=== PATIENT | female | born 1970 | race Two or more races ===

== ENCOUNTER 2021-07-06 11:41 | Inpatient (IN) | payer OTHER ==
[~2021-07-06] VITALS: Ht 172.7 cm; Wt 74.6 kg
[2021-07-06] MEDS ORDERED: ACETAMINOPHEN 325 MG TAB PO ONE (12:00)
[2021-07-06 12:15] LABS: Basophils # (auto) 0 10 ^3/uL (0-0.2); Basophils % (auto) 0.3 % (0.0-2.0); Eosinophils # (auto) 0 10 ^3/uL (0-0.8); Eosinophils % (auto) 0.2 % (0.0-7.0); Hematocrit 32.5 % (36.0-46.0); Hemoglobin 10.9 g/dL (12.2-16.2); Lymphocytes # (auto) 0.6 10 ^3/uL (0.4-5.4); Lymphocytes % (auto) 8.9 % (10.0-50.0); Mean Corpuscular Hemoglobin 30.1 pg (28.0-32.0); Mean Corpuscular Hgb Conc. 33.7 g/dL (32.0-36.0); Mean Corpuscular Volume 89.4 fL (80.0-100.0); Monocytes # (auto) 0.7 10 ^3/uL (0-1.3); Neutrophils # (auto) 5.4 10 ^3/uL (1.6-8.6); Neutrophils % (auto) 79.6 % (37.0-80.0); Red Blood Cells 3.63 10^6/uL (4.0-5.20); Red Cell Distribution Width 12.9 % (11.8-14.3); White Blood Cell 6.8 10^3/uL (4.4-10.8)
[2021-07-06] MEDS ORDERED: DexAMETHasone SOD PHOS 10MG/1ML VIAL INJ IV ONE (12:15)
[2021-07-06 12:33] LABS: Albumin 2.7 g/dL (3.4-5.0); Anion Gap 10 (5-15); Blood Urea Nitrogen 14 mg/dL (7-18); Calcium 9.1 mg/dL (8.5-10.1); Carbon Dioxide 23 mmol/L (21-32); Chloride 103 mmol/L (98-107); Glucose 183 mg/dL (74-106); Lipase 222 U/L (73-393); Potassium 3.8 mmol/L (3.5-5.1); Sodium 136 mmol/L (136-145)
[2021-07-06 12:36] LABS: INR 1.09 (0.9-1.15); Partial Thromboplastin Time 27.8 sec (23.6-33.0)
[2021-07-06 12:38] LABS: Alanine Aminotransferase 42 U/L (13-56); Alkaline Phosphatase 70 U/L (45-117); Aspartate Aminotransferase 46 U/L (15-37); BUN/Creatinine Ratio 13.9; Bilirubin, Total 1.1 mg/dL (0.2-1.0); GFR African American 74 mL/min; GFR Non-African American 61 mL/min; Total Protein 8.5 g/dL (6.4-8.2)
[2021-07-06 14:57] LABS: Urine Bacteria NONE SEEN /hpf (None Seen); Urine Blood TRACE /uL (Negative); Urine Mucus FEW (None Seen); Urine Specific Gravity 1.026 (1.001-1.035); Urine WBC 498 /hpf (0 - 5)
[2021-07-06] MEDS ORDERED: ACETAMINOPHEN 500 MG TAB PO PRN (16:30)
[2021-07-06] MEDS ORDERED: DEXTROSE (50%) 50ML SYRG IV PRN (16:30)
[2021-07-06] MEDS ORDERED: MORPHINE SULFATE INJECTION 2 MG/ML SYRG IV PRN (16:30)
[2021-07-06] MEDS ORDERED: NITROGLYCERIN 0.4 MG SL TAB SL PRN (16:30)
[2021-07-06] MEDS ORDERED: REMDESIVIR PER PHARMACY 0 ML IV SCH (16:30)
[2021-07-06] MEDS: cefTRIAXone 1GM/50ML D5W 50 ML IV SCH (16:55)
[2021-07-06] MEDS: AZITHROMYCIN 500MG/ 250ML 250 ML IV SCH (17:45)
[2021-07-06] MEDS: InsuLIN REG 1unit/0.01ml Soln (100units/ml) SC SCH ×2 (17:53→22:16)
[2021-07-06] MEDS: ACCU-CHEK COMFORT CURVE STRIP VI SCH ×2 (17:55→22:11)
[2021-07-06] MEDS ORDERED: REMDESIVIR 200 MG in NS 210ml LOADING DOSE ADULT IV ONE (20:00)
[2021-07-06] MEDS: ENOXAPARIN SOD 40 MG/0.4 ML SYRINGE SC SCH (22:16)
[2021-07-07] MEDS: ACCU-CHEK COMFORT CURVE STRIP VI SCH ×4 (06:34→21:41)
[2021-07-07 06:42] LABS: Albumin 2.2 g/dL (3.4-5.0); BUN/Creatinine Ratio 24.7; Calcium 9.1 mg/dL (8.5-10.1); Potassium 3.9 mmol/L (3.5-5.1)
[2021-07-07 06:44] LABS: Bilirubin, Total 0.6 mg/dL (0.2-1.0); Total Protein 7.5 g/dL (6.4-8.2)
[2021-07-07 06:45] LABS: Basophils # (auto) 0 10 ^3/uL (0-0.2); Basophils % (auto) 0.1 % (0.0-2.0); Eosinophils # (auto) 0 10 ^3/uL (0-0.8); Hematocrit 35.9 % (36.0-46.0); Hemoglobin 12.3 g/dL (12.2-16.2); Lymphocytes # (auto) 0.5 10 ^3/uL (0.4-5.4); Lymphocytes % (auto) 6.7 % (10.0-50.0); Mean Corpuscular Hemoglobin 30.5 pg (28.0-32.0); Mean Corpuscular Hgb Conc. 34.3 g/dL (32.0-36.0); Mean Corpuscular Volume 89.2 fL (80.0-100.0); Monocytes # (auto) 0.8 10 ^3/uL (0-1.3); Monocytes % (auto) 9.7 % (0.0-12.0); Neutrophils # (auto) 6.6 10 ^3/uL (1.6-8.6); Neutrophils % (auto) 83.5 % (37.0-80.0); Red Blood Cells 4.03 10^6/uL (4.0-5.20); Red Cell Distribution Width 12.8 % (11.8-14.3); White Blood Cell 7.8 10^3/uL (4.4-10.8)
[2021-07-07] MEDS: InsuLIN REG 1unit/0.01ml Soln (100units/ml) SC SCH ×5 (06:45→21:43)
[2021-07-07] MEDS: BUDESONIDE (INHALATION) 180 MCG IH IN SCH ×3 (08:15→20:19)
[2021-07-07] MEDS: cefTRIAXone 1GM/50ML D5W 50 ML IV SCH (08:46)
[2021-07-07 09:06] VITALS: BP 126/68
[2021-07-07] MEDS: ENOXAPARIN SOD 40 MG/0.4 ML SYRINGE SC SCH (09:49)
[2021-07-07] MEDS: DexAMETHasone SOD PHOS 10MG/1ML VIAL INJ IV SCH (09:49)
[2021-07-07] MEDS: CHOLECALCIFEROL (VITD3) 2,000 UNIT CAP/TAB PO SCH (09:50)
[2021-07-07] MEDS: ZINC SULFATE 220mg CAP or TAB PO SCH (09:50)
[2021-07-07] MEDS: ASCORBIC ACID 1,000 MG TAB PO SCH (09:50)
[2021-07-07] MEDS: AZITHROMYCIN 500MG/ 250ML 250 ML IV SCH (09:59)
[2021-07-07] MEDS: ALBUTEROL SULF HFA 90MCG INH 200DOSE IN PRN ×2 (12:25→20:19)
[2021-07-07] MEDS ORDERED: IOHEXOL 350 MG/ML 100ML IJ ONE (13:18)
[2021-07-07] MEDS: REMDESIVIR 100mg 100 MG in SODIUM CHL 0.9% 230 ML IV SCH (15:25)
[2021-07-07] MEDS ORDERED: ENOXAPARIN SOD 80 MG/0.8ML SYRINGE SC ONE (15:30)
[2021-07-07] MEDS ORDERED: ENOXAPARIN SOD 30 MG/0.3 ML SYRINGE SC ONE (16:00)
[2021-07-07 17:43] VITALS: BP 156/88
[2021-07-07] MEDS ORDERED: ATOR10TA52 PO (18:19)
[2021-07-07] MEDS ORDERED: LISI20TA28 PO (18:19)
[2021-07-07] MEDS ORDERED: METF750T54 PO (18:19)
[2021-07-07] MEDS: ENOXAPARIN SOD 80 MG/0.8ML SYRINGE SC SCH (21:41)
[2021-07-07 22:40] VITALS: BP 134/73
[2021-07-08 05:10] VITALS: BP 146/77
[2021-07-08] MEDS: InsuLIN REG 1unit/0.01ml Soln (100units/ml) SC SCH ×4 (06:37→22:00)
[2021-07-08] MEDS: ACCU-CHEK COMFORT CURVE STRIP VI SCH ×4 (06:37→22:00)
[2021-07-08 06:40] LABS: Basophils # (auto) 0 10 ^3/uL (0-0.2); Basophils % (auto) 0.1 % (0.0-2.0); Eosinophils # (auto) 0 10 ^3/uL (0-0.8); Hematocrit 37.7 % (36.0-46.0); Hemoglobin 12.5 g/dL (12.2-16.2); Lymphocytes # (auto) 0.6 10 ^3/uL (0.4-5.4); Lymphocytes % (auto) 4.7 % (10.0-50.0); Mean Corpuscular Hemoglobin 29.5 pg (28.0-32.0); Mean Corpuscular Hgb Conc. 33.1 g/dL (32.0-36.0); Mean Corpuscular Volume 89.3 fL (80.0-100.0); Monocytes # (auto) 0.9 10 ^3/uL (0-1.3); Monocytes % (auto) 7.1 % (0.0-12.0); Neutrophils # (auto) 11.2 10 ^3/uL (1.6-8.6); Neutrophils % (auto) 88.1 % (37.0-80.0); Red Blood Cells 4.23 10^6/uL (4.0-5.20); Red Cell Distribution Width 12.6 % (11.8-14.3); White Blood Cell 12.7 10^3/uL (4.4-10.8)
[2021-07-08 07:00] LABS: Potassium 4.1 mmol/L (3.5-5.1)
[2021-07-08] MEDS ORDERED: INSULIN LANTUS (GLARGINE) 1 /0.01ml (100units/ml) SC SCH (07:00)
[2021-07-08 07:07] LABS: Albumin 2.4 g/dL (3.4-5.0); Bilirubin, Total 0.5 mg/dL (0.2-1.0); Calcium 9.7 mg/dL (8.5-10.1); Total Protein 7.8 g/dL (6.4-8.2)
[2021-07-08] MEDS: DexAMETHasone SOD PHOS 10MG/1ML VIAL INJ IV SCH (08:56)
[2021-07-08] MEDS: cefTRIAXone 1GM/50ML D5W 50 ML IV SCH (08:56)
[2021-07-08] MEDS: ZINC SULFATE 220mg CAP or TAB PO SCH (08:56)
[2021-07-08] MEDS: ASCORBIC ACID 1,000 MG TAB PO SCH (08:57)
[2021-07-08] MEDS: CHOLECALCIFEROL (VITD3) 2,000 UNIT CAP/TAB PO SCH (08:57)
[2021-07-08] MEDS: ENOXAPARIN SOD 80 MG/0.8ML SYRINGE SC SCH ×2 (08:57→22:08)
[2021-07-08 09:00] VITALS: BP 139/78
[2021-07-08] MEDS: AZITHROMYCIN 500MG/ 250ML 250 ML IV SCH (09:23)
[2021-07-08] MEDS: BUDESONIDE (INHALATION) 180 MCG IH IN SCH ×2 (10:33→22:00)
[2021-07-08] MEDS: ALBUTEROL SULF HFA 90MCG INH 200DOSE IN PRN ×2 (10:33→22:39)
[2021-07-08 13:00] VITALS: BP 143/81
[2021-07-08] MEDS: INSULIN LANTUS (GLARGINE) 1 /0.01ml (100units/ml) SC SCH ×2 (13:38→22:00)
[2021-07-08] MEDS: REMDESIVIR 100mg 100 MG in SODIUM CHL 0.9% 230 ML IV SCH (15:10)
[2021-07-08 17:00] VITALS: BP 167/83
[2021-07-08 18:13] VITALS: BP 156/82
[2021-07-08 23:01] VITALS: BP 139/74
[2021-07-09 00:50] VITALS: BP 139/74
[2021-07-09 05:16] VITALS: BP 150/76
[2021-07-09] MEDS: InsuLIN REG 1unit/0.01ml Soln (100units/ml) SC SCH ×4 (06:39→21:53)
[2021-07-09] MEDS: ACCU-CHEK COMFORT CURVE STRIP VI SCH ×4 (06:40→21:41)
[2021-07-09] MEDS: BUDESONIDE (INHALATION) 180 MCG IH IN SCH ×2 (06:56→20:57)
[2021-07-09] MEDS: ALBUTEROL SULF HFA 90MCG INH 200DOSE IN PRN (06:56)
[2021-07-09 07:02] LABS: Basophils # (auto) 0 10 ^3/uL (0-0.2); Basophils % (auto) 0.4 % (0.0-2.0); Eosinophils # (auto) 0 10 ^3/uL (0-0.8); Eosinophils % (auto) 0.2 % (0.0-7.0); Lymphocytes # (auto) 0.9 10 ^3/uL (0.4-5.4); Nucleated Red Blood Cells % 0.1 %
[2021-07-09 07:06] LABS: Hematocrit 37.4 % (36.0-46.0); Hemoglobin 12.4 g/dL (12.2-16.2); Lymphocytes % (auto) 8.5 % (10.0-50.0); Mean Corpuscular Hemoglobin 29.7 pg (28.0-32.0); Mean Corpuscular Volume 89.8 fL (80.0-100.0); Monocytes % (auto) 8.7 % (0.0-12.0); Neutrophils # (auto) 9.1 10 ^3/uL (1.6-8.6); Neutrophils % (auto) 82.2 % (37.0-80.0); Red Blood Cells 4.17 10^6/uL (4.0-5.20); Red Cell Distribution Width 12.5 % (11.8-14.3)
[2021-07-09 07:34] LABS: Potassium 4.1 mmol/L (3.5-5.1)
[2021-07-09 07:44] LABS: Albumin 2.3 g/dL (3.4-5.0); BUN/Creatinine Ratio 26.5; Calcium 9.7 mg/dL (8.5-10.1)
[2021-07-09 07:53] LABS: Bilirubin, Total 0.4 mg/dL (0.2-1.0); Total Protein 7.5 g/dL (6.4-8.2)
[2021-07-09 09:00] VITALS: BP 155/80
[2021-07-09] MEDS: AZITHROMYCIN 500MG/ 250ML 250 ML IV SCH (09:50)
[2021-07-09] MEDS: cefTRIAXone 1GM/50ML D5W 50 ML IV SCH (09:50)
[2021-07-09] MEDS: DexAMETHasone SOD PHOS 10MG/1ML VIAL INJ IV SCH (09:51)
[2021-07-09] MEDS: CHOLECALCIFEROL (VITD3) 2,000 UNIT CAP/TAB PO SCH (09:51)
[2021-07-09] MEDS: ENOXAPARIN SOD 80 MG/0.8ML SYRINGE SC SCH ×2 (09:51→21:41)
[2021-07-09] MEDS: ZINC SULFATE 220mg CAP or TAB PO SCH (09:51)
[2021-07-09] MEDS: ASCORBIC ACID 1,000 MG TAB PO SCH (09:51)
[2021-07-09] MEDS: INSULIN LANTUS (GLARGINE) 1 /0.01ml (100units/ml) SC SCH ×2 (09:52→21:46)
[2021-07-09 13:00] VITALS: BP 142/85
[2021-07-09] MEDS: REMDESIVIR 100mg 100 MG in SODIUM CHL 0.9% 230 ML IV SCH (15:43)
[2021-07-09 17:00] VITALS: BP 157/88
[2021-07-09 21:51] VITALS: BP 168/80
[2021-07-09] MEDS ORDERED: amLODIPine BESYLATE 5 MG TAB PO ONE (22:15)
[2021-07-09] MEDS ORDERED: ACETAMINOPHEN 325 MG TAB PO PRN (22:15)
[2021-07-09] MEDS ORDERED: hydrALAZINE HCL 20 MG/ML VL IV PRN (22:15)
[2021-07-10] VITALS (7 sets, daily range): BP systolic 112–176; BP diastolic 76–97
[2021-07-10] MEDS ORDERED: HYDROcodone-ACET 5/325MG TAB PO PRN (00:15)
[2021-07-10] MEDS: ACCU-CHEK COMFORT CURVE STRIP VI SCH ×4 (06:13→21:12)
[2021-07-10] MEDS: InsuLIN REG 1unit/0.01ml Soln (100units/ml) SC SCH ×4 (06:16→21:25)
[2021-07-10 07:41] LABS: Hemoglobin 12.5 g/dL (12.2-16.2); Lymphocytes # (auto) 1.1 10 ^3/uL (0.4-5.4); Monocytes # (auto) 1.1 10 ^3/uL (0-1.3); Nucleated Red Blood Cells % 0.1 %
[2021-07-10 07:44] LABS: Basophils # (auto) 0 10 ^3/uL (0-0.2); Basophils % (auto) 0.4 % (0.0-2.0); Eosinophils # (auto) 0 10 ^3/uL (0-0.8); Eosinophils % (auto) 0.4 % (0.0-7.0); Hematocrit 36.7 % (36.0-46.0); Lymphocytes % (auto) 11.5 % (10.0-50.0); Mean Corpuscular Hemoglobin 30.1 pg (28.0-32.0); Mean Corpuscular Hgb Conc. 33.9 g/dL (32.0-36.0); Mean Corpuscular Volume 88.7 fL (80.0-100.0); Monocytes % (auto) 11.4 % (0.0-12.0); Neutrophils # (auto) 7.4 10 ^3/uL (1.6-8.6); Neutrophils % (auto) 76.3 % (37.0-80.0); Red Blood Cells 4.14 10^6/uL (4.0-5.20); Red Cell Distribution Width 12.6 % (11.8-14.3); White Blood Cell 9.7 10^3/uL (4.4-10.8)
[2021-07-10 07:56] LABS: Albumin 2.4 g/dL (3.4-5.0); Calcium 9.4 mg/dL (8.5-10.1); Potassium 3.9 mmol/L (3.5-5.1)
[2021-07-10 08:01] LABS: BUN/Creatinine Ratio 29.9; Bilirubin, Total 0.4 mg/dL (0.2-1.0); Total Protein 7.1 g/dL (6.4-8.2)
[2021-07-10] MEDS: ALBUTEROL SULF HFA 90MCG INH 200DOSE IN PRN ×2 (08:11→19:58)
[2021-07-10] MEDS: BUDESONIDE (INHALATION) 180 MCG IH IN SCH ×2 (08:11→19:58)
[2021-07-10] MEDS: cefTRIAXone 1GM/50ML D5W 50 ML IV SCH (09:49)
[2021-07-10] MEDS: ZINC SULFATE 220mg CAP or TAB PO SCH (09:49)
[2021-07-10] MEDS: CHOLECALCIFEROL (VITD3) 2,000 UNIT CAP/TAB PO SCH (09:49)
[2021-07-10] MEDS: DexAMETHasone SOD PHOS 10MG/1ML VIAL INJ IV SCH (09:49)
[2021-07-10] MEDS: ASCORBIC ACID 1,000 MG TAB PO SCH (09:49)
[2021-07-10] MEDS: ENOXAPARIN SOD 80 MG/0.8ML SYRINGE SC SCH ×2 (09:50→21:12)
[2021-07-10] MEDS: INSULIN LANTUS (GLARGINE) 1 /0.01ml (100units/ml) SC SCH ×2 (09:50→21:25)
[2021-07-10] MEDS: AZITHROMYCIN 500MG/ 250ML 250 ML IV SCH (10:35)
[2021-07-10] MEDS ORDERED: LISINOPRIL 20 MG TAB PO ONE (10:45)
[2021-07-10] MEDS: REMDESIVIR 100mg 100 MG in SODIUM CHL 0.9% 230 ML IV SCH (15:36)
[2021-07-11 05:37] LABS: Basophils # (auto) 0 10 ^3/uL (0-0.2); Eosinophils # (auto) 0 10 ^3/uL (0-0.8); Monocytes # (auto) 1.1 10 ^3/uL (0-1.3); Neutrophils # (auto) 8.5 10 ^3/uL (1.6-8.6); Nucleated Red Blood Cells % 0.1 %; Red Cell Distribution Width 12.5 % (11.8-14.3)
[2021-07-11 05:41] LABS: Basophils % (auto) 0.2 % (0.0-2.0); Eosinophils % (auto) 0.2 % (0.0-7.0); Hematocrit 37.2 % (36.0-46.0); Hemoglobin 12.3 g/dL (12.2-16.2); Lymphocytes % (auto) 9.6 % (10.0-50.0); Mean Corpuscular Hemoglobin 29.4 pg (28.0-32.0); Mean Corpuscular Hgb Conc. 33.1 g/dL (32.0-36.0); Mean Corpuscular Volume 88.7 fL (80.0-100.0); Monocytes % (auto) 10.5 % (0.0-12.0); Neutrophils % (auto) 79.5 % (37.0-80.0); White Blood Cell 10.7 10^3/uL (4.4-10.8)
[2021-07-11 05:53] LABS: Potassium 4.1 mmol/L (3.5-5.1)
[2021-07-11 06:01] VITALS: BP 117/78
[2021-07-11 06:07] LABS: BUN/Creatinine Ratio 29.3; Calcium 9.9 mg/dL (8.5-10.1)
[2021-07-11] MEDS: ACCU-CHEK COMFORT CURVE STRIP VI SCH ×4 (06:29→21:24)
[2021-07-11] MEDS: InsuLIN REG 1unit/0.01ml Soln (100units/ml) SC SCH ×4 (06:29→21:23)
[2021-07-11] MEDS: BUDESONIDE (INHALATION) 180 MCG IH IN SCH ×2 (07:10→22:04)
[2021-07-11] MEDS: ALBUTEROL SULF HFA 90MCG INH 200DOSE IN PRN ×2 (07:10→22:04)
[2021-07-11 09:00] VITALS: BP 100/58
[2021-07-11] MEDS ORDERED: LISINOPRIL 20 MG TAB PO SCH (10:00)
[2021-07-11] MEDS: cefTRIAXone 1GM/50ML D5W 50 ML IV SCH (10:50)
[2021-07-11] MEDS: ENOXAPARIN SOD 80 MG/0.8ML SYRINGE SC SCH ×2 (10:50→21:23)
[2021-07-11] MEDS: ZINC SULFATE 220mg CAP or TAB PO SCH (10:50)
[2021-07-11] MEDS: CHOLECALCIFEROL (VITD3) 2,000 UNIT CAP/TAB PO SCH (10:50)
[2021-07-11] MEDS: ASCORBIC ACID 1,000 MG TAB PO SCH (10:50)
[2021-07-11] MEDS: DexAMETHasone SOD PHOS 10MG/1ML VIAL INJ IV SCH (10:50)
[2021-07-11] MEDS: INSULIN LANTUS (GLARGINE) 1 /0.01ml (100units/ml) SC SCH ×2 (11:00→21:23)
[2021-07-11 13:00] VITALS: BP 136/76
[2021-07-11 17:00] VITALS: BP 134/86
[2021-07-11 22:00] VITALS: BP 112/70
[2021-07-11 23:12] VITALS: BP 134/86
[2021-07-12 05:00] VITALS: BP 101/67
[2021-07-12] MEDS: ACCU-CHEK COMFORT CURVE STRIP VI SCH (06:08)
[2021-07-12] MEDS: InsuLIN REG 1unit/0.01ml Soln (100units/ml) SC SCH (06:13)
[2021-07-12] MEDS: ALBUTEROL SULF HFA 90MCG INH 200DOSE IN PRN (06:50)
[2021-07-12] MEDS: BUDESONIDE (INHALATION) 180 MCG IH IN SCH (06:51)
[2021-07-12] MEDS: cefTRIAXone 1GM/50ML D5W 50 ML IV SCH (08:39)
[2021-07-12 09:00] VITALS: BP 100/71
== END 2021-07-12 10:10 | disposition home or self-care (01) | DRG 177 ==
LOC: EDBD 11:41 → ER 11:41 → TELE 16:21 → TELE-EAST 07-07 17:21
PROVIDERS: ADMIT Nurse Practitioner Acute Care; ATTEND Internal Medicine Pulmonary Disease
PROC: XW033E5 Introduction of Remdesivir Anti-infective into Peripheral Vein, Percutaneous Approach, New Technology Group 5 (ICD-10-PCS; principal; 2021-07-06)
DX: U07.1 COVID-19 (principal); I26.99 Other pulmonary embolism without acute cor pulmonale; J96.01 Acute respiratory failure with hypoxia; J12.82 Pneumonia due to coronavirus disease 2019; N39.0 Urinary tract infection, site not specified; D89.839 Cytokine release syndrome, grade unspecified; E11.65 Type 2 diabetes mellitus with hyperglycemia; E78.5 Hyperlipidemia, unspecified; I10 Essential (primary) hypertension; Z79.84 Long term (current) use of oral hypoglycemic drugs
CPT/HCPCS: 36415; 36600; 71045; 71275; 80048; 80053; 81001; 81025; 82728; 82805; 82962; 83036; 83605; 83615; 83690; 84484; 84702; 85025; 85379; 85610; 85730; 87086; 87426; 93005; 93970; 94640; 96365; 96367; 96375; 99291; G0378; J0696; J1100; J1815